=== PATIENT | female | born 1960 | race Caucasian/White ===

== ENCOUNTER 2016-12-25 10:26 | Emergency (ER) | payer BC ==
[~2016-12-25] VITALS: Ht 157.5 cm; Wt 164.0 kg
[2016-12-25 10:31] VITALS: BP 133/78
[2016-12-25 11:27] LABS: BLOOD UREA NITROGEN 7 mg/dL (7-18)
== END 2016-12-25 11:43 | disposition home or self-care (01) ==
LOC: ED 10:56
DX: G62.9 Polyneuropathy, unspecified (principal)
CPT/HCPCS: 36415; 80048; 82040; 84550; 85025; 99284

== ENCOUNTER → 2017-11-12 | Outpatient (CLI) | payer BC | END | disposition home or self-care (01) | LOC: CFH 12:03 | PROVIDERS: ATTEND Nurse Practitioner Family | DX: R07.9 Chest pain, unspecified (principal) | CPT/HCPCS: 71046 ==

== ENCOUNTER → 2018-03-06 | Outpatient (CLI) | payer MEDICAID ==
[~2018-03-06] MED LIST: LIDOCAINE 1%, 20ML ONE
== END | disposition home or self-care (01) ==
LOC: CFH 09:58
PROVIDERS: ATTEND Nurse Practitioner Family
DX: R92.0 Mammographic microcalcification found on diagnostic imaging of breast (principal); Z98.890 Other specified postprocedural states
CPT/HCPCS: 19081; 77065; 88305; J3490

== ENCOUNTER → 2018-03-14 | Outpatient (CLI) | payer BC, MEDICAID ==
[~2018-03-14] MED LIST changes: -LIDOCAINE 1%, 20ML ONE; +REGADENOSON 0.4 MG/5 ML SYRINGE ONE
== END | disposition home or self-care (01) ==
LOC: CFH 07:17
PROVIDERS: ATTEND Internal Medicine Cardiovascular Disease
DX: E78.5 Hyperlipidemia, unspecified (principal); R06.02 Shortness of breath; N64.89 Other specified disorders of breast
CPT/HCPCS: 78452; 93017; A9502; 93306; J2785

== ENCOUNTER 2020-03-13 10:50 | Emergency (ER) | payer MEDICAID ==
[~2020-03-13] VITALS: Ht 154.9 cm; Wt 79.6 kg
[2020-03-13] MEDS ORDERED: ATOR40TA78 PO (11:30)
[2020-03-13] MEDS ORDERED: HYDROcodone/APAP 5/325 TABLET PO ONE (11:30)
[2020-03-13] MEDS ORDERED: ERGO500018 PO (11:30)
[2020-03-13] MEDS ORDERED: HYDROcodone/APAP 5/325 TABLET ONE (11:34)
[2020-03-13 11:37] VITALS: BP 162/73
--- NOTE | 2020-03-13 12:04 | NUR ---
BREAK RN: PT RESTING ON BETTY. NADN. HUBER.
--- NOTE | 2020-03-13 12:18 | NUR ---
BREAK RN: PT CHART REVIEWED AND PLACED FOR RECHECK.
== END 2020-03-13 13:09 | disposition home or self-care (01) ==
LOC: ED 12:23
DX: M25.511 Pain in right shoulder (principal); R94.31 Abnormal electrocardiogram [ECG] [EKG]; E78.5 Hyperlipidemia, unspecified
CPT/HCPCS: 93005; 99283

== ENCOUNTER 2020-03-14 11:36 | Emergency (ER) | payer MEDICAID ==
[~2020-03-14] VITALS: Ht 154.9 cm; Wt 79.0 kg
[~2020-03-14 11:36] MED LIST changes: +ATOR40TA78 PO; +ERGO500018 PO; -REGADENOSON 0.4 MG/5 ML SYRINGE ONE
--- NOTE | 2020-03-14 11:52 | NUR ---
patient arrives to er with right shoulder pain. she was here yesterday, and patient had an unremarkable xray and was discharged. patient arrives today with family. somali speaking
[2020-03-14] MEDS ORDERED: METHOCARBAMOL 750 MG TABLET PO ONE (12:00)
[2020-03-14] MEDS ORDERED: HYDROcodone/APAP 5/325 TABLET PO ONE (12:00)
[2020-03-14] MEDS ORDERED: HYDROcodone/APAP 5/325 TABLET ONE (12:01)
[2020-03-14] MEDS ORDERED: METHOCARBAMOL 750 MG TABLET ONE (12:01)
[2020-03-14 12:53] VITALS: BP 134/78
--- NOTE | 2020-03-14 12:58 | NUR ---
SLING PLACED ON RIGHT ARM. DISCHARGE REVIEWED. SHOWS UNDERSTANDING
== END 2020-03-14 13:05 ==
LOC: ED 12:33
DX: M47.812 Spondylosis without myelopathy or radiculopathy, cervical region (principal); M77.9 Enthesopathy, unspecified; M25.511 Pain in right shoulder; E78.00 Pure hypercholesterolemia, unspecified
CPT/HCPCS: 29105; 72125; 99284; 99285

== ENCOUNTER 2020-03-18 18:00 | Emergency (ER) | payer MEDICAID ==
[~2020-03-18] VITALS: Ht 154.9 cm; Wt 78.7 kg
[2020-03-18] MEDS ORDERED: DIAZEPAM 5 MG/ML, 2ML IV PRN (20:00)
[2020-03-18] MEDS ORDERED: KETOROLAC 30 MG/1 ML IV ONE (20:00)
[2020-03-18] MEDS ORDERED: DIAZEPAM 5 MG/ML, 2ML ONE (20:06)
[2020-03-18] MEDS ORDERED: KETOROLAC 30 MG/1 ML ONE (20:06)
[2020-03-18 20:38] LABS: BASOPHILS # (AUTO) 0.03 x10^3/uL (0-0.1); BASOPHILS % (AUTO) 0 % (0-1); EOSINOPHILS # (AUTO) 0.12 x10^3/uL (0-0.4); EOSINOPHILS % (AUTO) 1 % (1-7); LYMPHOCYTES # (AUTO) 2.83 x10^3/uL (1-3.4); LYMPHOCYTES % (AUTO) 31 % (22-44); MD NO; MEAN CORPUSCULAR HGB CONC 33.6 g/dL (32.4-35.8); MEAN CORPUSCULAR VOLUME 92.2 fL (80-100); MEAN PLATELET VOLUME 7.9 fL (7.4-10.4); MONOCYTES # (AUTO) 0.69 x10^3/uL (0.2-0.8); MONOCYTES % (AUTO) 8 % (2-9); NEUTROPHILS # (AUTO) 5.52 x10^3/uL (1.8-6.8); NEUTROPHILS % (AUTO) 60 % (42-75); PLATELET COUNT 303 x10^3/uL (130-400); RED BLOOD COUNT 4.77 x10^6/uL (3.82-5.3)
[2020-03-18 20:39] LABS: ANION GAP 7 mmol/L (5-15); CALCIUM 8.4 mg/dL (8.5-10.1); CHLORIDE 108 mmol/L (98-107)
--- NOTE | 2020-03-18 20:50 | NUR ---
PT REPORTS PAIN IS BETTER AND PT HAS MORE RANGE OF MOTION. CHART UP FOR MD RECHECK.
--- NOTE | 2020-03-18 21:20 | NUR ---
Rohith MARCELINO AT BEDSIDE FOR RECHECK.
[2020-03-18] MEDS ORDERED: ONDANSETRON 2MG/ML, 2ML ONE (21:46)
[2020-03-18] MEDS ORDERED: MORPHINE SULFATE 4 MG/ML, 1ML ONE (21:46)
[2020-03-18] MEDS ORDERED: MORPHINE SULFATE 4 MG/ML, 1ML IVPush PRN (22:00)
[2020-03-18] MEDS ORDERED: ONDANSETRON 2MG/ML, 2ML IVPush ONE (22:00)
--- NOTE | 2020-03-18 22:01 | NUR ---
REPORT TO ASHLEE DAVID.
[2020-03-18 23:25] VITALS: BP 142/66
== END 2020-03-18 23:27 | disposition home or self-care (01) ==
LOC: ED 19:32
DX: M25.511 Pain in right shoulder (principal); M54.12 Radiculopathy, cervical region; E78.5 Hyperlipidemia, unspecified
CPT/HCPCS: 36415; 80048; 82040; 85025; 96374; 96375; 99285; J1885; J2270; J2405; J3360

== ENCOUNTER 2020-07-20 12:48 | Emergency (ER) | payer MEDICAID ==
[~2020-07-20] VITALS: Ht 152.4 cm; Wt 77.7 kg
[2020-07-20 13:49] LABS: BASOPHILS % (AUTO) 1 % (0-1); EOSINOPHILS % (AUTO) 0 % (1-7); LYMPHOCYTES % (AUTO) 40 % (22-44); MEAN CORPUSCULAR HEMOGLOBIN 31.1 pg (27.0-34.8); MEAN CORPUSCULAR HGB CONC 33.5 g/dL (32.4-35.8); MEAN PLATELET VOLUME 7.6 fL (7.4-10.4); MONOCYTES % (AUTO) 9 % (2-9); NEUTROPHILS % (AUTO) 49 % (42-75); PLATELET COUNT 177 x10^3/uL (130-400); RED BLOOD COUNT 4.74 x10^6/uL (3.82-5.3); RED CELL DISTRIBUTION WIDTH 13.6 % (9.6-15.2)
[2020-07-20 13:51] LABS: MD NO
[2020-07-20 14:00] LABS: ALANINE AMINOTRANSFERASE 45 U/L (12-78); ALBUMIN 4.1 g/dL (3.4-5.0); ANION GAP 5 mmol/L (5-15); CHLORIDE 106 mmol/L (98-107); CREATININE 0.58 mg/dL (0.55-1.02)
[2020-07-20 14:05] LABS: ALKALINE PHOSPHATASE 135 U/L (45-117); BILIRUBIN,TOTAL 0.5 mg/dL (0.2-1.0); TOTAL PROTEIN 8.1 g/dL (6.4-8.2); TROPONIN I < 0.015 ng/mL (0.000-0.045)
[2020-07-20 14:39] LABS: MICROSCOPIC NOT IND
[2020-07-20 15:16] VITALS: BP 131/58
== END 2020-07-20 15:33 | disposition home or self-care (01) ==
LOC: ED 15:25
DX: R06.00 Dyspnea, unspecified (principal); R06.02 Shortness of breath; R42 Dizziness and giddiness; E78.5 Hyperlipidemia, unspecified
CPT/HCPCS: 36415; 71045; 80053; 81003; 83880; 84484; 85025; 85379; 93005; 99285